=== PATIENT | female | born 1990 | race African-American/Black ===

== ENCOUNTER 2016-12-11 09:37 | Emergency (ER) | payer OTHER ==
[~2016-12-11] VITALS: Ht 165.1 cm; Wt 59.6 kg
[2016-12-11 09:39] VITALS: BP 121/78
[2016-12-11] MEDS ORDERED: ALPR1TAB2 PO (10:07)
== END 2016-12-11 11:31 | disposition home or self-care (01) ==
LOC: ED 11:02
DX: B34.9 Viral infection, unspecified (principal); K02.9 Dental caries, unspecified; Z87.891 Personal history of nicotine dependence
CPT/HCPCS: 71020

== ENCOUNTER 2017-01-05 16:28 | Emergency (ER) | payer OTHER ==
[~2017-01-05] VITALS: Ht 165.1 cm; Wt 57.4 kg
[~2017-01-05 16:28] MED LIST: ALPR1TAB2 PO
[2017-01-05 16:30] VITALS: BP 131/73
== END 2017-01-05 18:05 | disposition home or self-care (01) ==
LOC: ED 17:59
DX: S09.90XA Unspecified injury of head, initial encounter (principal); S49.92XA Unspecified injury of left shoulder and upper arm, initial encounter; Y04.2XXA Assault by strike against or bumped into by another person, initial encounter; Y93.89 Activity, other specified; Y92.89 Other specified places as the place of occurrence of the external cause; Y99.8 Other external cause status
CPT/HCPCS: 70450; 99284

== ENCOUNTER 2017-06-11 17:22 | Emergency (ER) | payer OTHER ==
[~2017-06-11] VITALS: Ht 165.1 cm; Wt 57.9 kg
[2017-06-11 17:29] VITALS: BP 136/78
== END 2017-06-11 18:22 | disposition home or self-care (01) ==
LOC: ED 18:20
DX: K08.89 Other specified disorders of teeth and supporting structures (principal)
CPT/HCPCS: 99283

== ENCOUNTER 2017-07-03 02:59 | Emergency (ER) | payer OTHER, MEDICAID ==
[~2017-07-03] VITALS: Ht 167.6 cm; Wt 62.6 kg
[2017-07-03 03:01] VITALS: BP 120/81
[2017-07-03] MEDS ORDERED: HYDROcodone/APAP 5/325 TABLET ONE (03:50)
[2017-07-03] MEDS ORDERED: HYDROcodone/APAP 5/325 TABLET PO ONE (04:00)
== END 2017-07-03 04:10 | disposition home or self-care (01) ==
LOC: ED 04:03
DX: K02.9 Dental caries, unspecified (principal); K08.89 Other specified disorders of teeth and supporting structures; Z87.891 Personal history of nicotine dependence
CPT/HCPCS: 99283

== ENCOUNTER 2017-07-11 05:20 | Emergency (ER) | payer MEDICAID, OTHER ==
[~2017-07-11] VITALS: Ht 165.1 cm; Wt 64.3 kg
[2017-07-11] MEDS ORDERED: HYDROcodone/APAP 5/325 TABLET PO PRN (06:00)
[2017-07-11] MEDS ORDERED: HYDROcodone/APAP 5/325 TABLET ONE (06:28)
[2017-07-11 09:04] VITALS: BP 128/68
== END 2017-07-11 09:07 | disposition home or self-care (01) ==
LOC: ED 06:24
DX: S09.90XA Unspecified injury of head, initial encounter (principal); S16.1XXA Strain of muscle, fascia and tendon at neck level, initial encounter; S40.012A Contusion of left shoulder, initial encounter; K08.89 Other specified disorders of teeth and supporting structures; V89.2XXA Person injured in unspecified motor-vehicle accident, traffic, initial encounter; Y93.89 Activity, other specified; Y92.89 Other specified places as the place of occurrence of the external cause; Y99.8 Other external cause status
CPT/HCPCS: 70450; 72072; 72125; 99284

== ENCOUNTER 2017-08-08 04:30 | Emergency (ER) | payer MEDICAID ==
[~2017-08-08] VITALS: Ht 167.6 cm; Wt 63.7 kg
[2017-08-08] MEDS ORDERED: HYDROcodone/APAP 5/325 TABLET ONE (05:08)
[2017-08-08] MEDS ORDERED: HYDROcodone/APAP 5/325 TABLET PO ONE (05:30)
[2017-08-08 06:07] VITALS: BP 123/74
== END 2017-08-08 06:09 | disposition home or self-care (01) ==
LOC: ED 05:33
DX: K08.89 Other specified disorders of teeth and supporting structures (principal)
CPT/HCPCS: 99283

== ENCOUNTER 2018-02-06 23:35 | Emergency (ER) | payer MEDICAID ==
[~2018-02-06] VITALS: Ht 167.6 cm; Wt 59.2 kg
[2018-02-06 23:37] VITALS: BP 118/78
[2018-02-07] MEDS ORDERED: OXYcodone/APAP 5/325MG TABLET ONE (00:47)
[2018-02-07] MEDS ORDERED: OXYcodone/APAP 5/325MG TABLET PO ONE (01:00)
== END 2018-02-07 01:02 | disposition home or self-care (01) ==
LOC: ED 02-07 00:35
DX: S72.435A Nondisplaced fracture of medial condyle of left femur, initial encounter for closed fracture (principal); K08.89 Other specified disorders of teeth and supporting structures; X58.XXXA Exposure to other specified factors, initial encounter; Y93.89 Activity, other specified; Y92.89 Other specified places as the place of occurrence of the external cause; Y99.8 Other external cause status
CPT/HCPCS: 99284

== ENCOUNTER 2018-03-25 04:45 | Emergency (ER) | payer MEDICAID ==
[~2018-03-25] VITALS: Ht 167.6 cm; Wt 58.8 kg
[2018-03-25 04:48] VITALS: BP 115/83
== END 2018-03-25 06:43 | disposition home or self-care (01) ==
LOC: ED 05:04
DX: S83.412A Sprain of medial collateral ligament of left knee, initial encounter (principal); M25.462 Effusion, left knee; W19.XXXA Unspecified fall, initial encounter; Y93.89 Activity, other specified; Y92.89 Other specified places as the place of occurrence of the external cause; Y99.8 Other external cause status
CPT/HCPCS: 29505; 99284

== ENCOUNTER 2018-07-29 21:19 | Emergency (ER) | payer MEDICAID ==
[2018-07-29 22:05] LABS: BASOPHILS # (AUTO) 0.08 x10^3/uL (0-0.1); BASOPHILS % (AUTO) 1 % (0-1); EOSINOPHILS # (AUTO) 0.02 x10^3/uL (0-0.4); EOSINOPHILS % (AUTO) 0 % (1-7); LYMPHOCYTES # (AUTO) 2.78 x10^3/uL (1-3.4); LYMPHOCYTES % (AUTO) 30 % (22-44); MD NO; MEAN CORPUSCULAR HEMOGLOBIN 28.6 pg (27.0-34.8); MEAN CORPUSCULAR HGB CONC 33.5 g/dL (32.4-35.8); MEAN CORPUSCULAR VOLUME 85.4 fL (80-100); MEAN PLATELET VOLUME 8.3 fL (7.4-10.4); MONOCYTES # (AUTO) 0.48 x10^3/uL (0.2-0.8); MONOCYTES % (AUTO) 5 % (2-9); NEUTROPHILS # (AUTO) 6.05 x10^3/uL (1.8-6.8); NEUTROPHILS % (AUTO) 64 % (42-75); PLATELET COUNT 260 x10^3/uL (130-400); RED BLOOD COUNT 4.44 x10^6/uL (3.82-5.3); RED CELL DISTRIBUTION WIDTH 13.1 % (9.6-15.2)
[2018-07-29 22:17] LABS: ALANINE AMINOTRANSFERASE 28 U/L (12-78); ALBUMIN 4.1 g/dL (3.4-5.0); ANION GAP 7 mmol/L (5-15); CALCIUM 9.4 mg/dL (8.5-10.1); CHLORIDE 108 mmol/L (98-107)
[2018-07-29 22:20] LABS: ALKALINE PHOSPHATASE 77 U/L (45-117); BILIRUBIN,TOTAL 0.4 mg/dL (0.2-1.0); TOTAL PROTEIN 7.7 g/dL (6.4-8.2)
--- NOTE | 2018-07-29 22:20 | NUR ---
PT IN GOWN IN [facility]. SPOUSE AT BS. PT NON-VERBAL AT THIS TIME, BUT ANSWERS QUESTIONS WITH NOTE PAD. PT SPOUSE TALKING AND ANSWERING QUESTIONS ON PT BEHALF. KATELYN [place], AT BS FOR HISTORY AND ASSESSMENT.
--- NOTE | 2018-07-29 22:45 | NUR ---
PT RECORDS RECEIVED FROM [facility]. PT AND SPOUSE CONFUSED ON TESTS/DIAGNOSTICS PERFORMED THERE. DR. AGOSTO AT TO EXPLAIN ALL TESTS AND FINDINGS. PT VERBALIZES UNDERSTANDING OF RESULTS. PT VSS AND UPDATED IN EMR.
[2018-07-29 22:58] VITALS: BP 131/97
--- NOTE | 2018-07-29 23:21 | NUR ---
PT D/C WITH D/C SUMMARY. PT AND PT SPOUSE GETTING IRRITABLE AND CONTINUES TO QUESTION MEDICAL TESTS FROM ANOTHER FACILITY. PT QUESTIONS ANSWERED BY KATELYN MONREAL. PT RESISTANT TO LEAVE, AND PT SPOUSE SAYING THAT THEY RECEIVED SUBPAR CARE AND MEDICAL EXPLANATIONS FROM OTHER HOSPITAL. PT AND SPOUSE ENCOURAGED TO CONTACT OTHER FACILITY FOR FURTHER QUESTIONS/EXPLANATIONS TO CARE RECEIVED THERE. PT SPOUSE VERBALIZES UNDERSTANDING.
== END 2018-07-29 23:20 | disposition home or self-care (01) ==
LOC: ED 22:56
DX: F44.9 Dissociative and conversion disorder, unspecified (principal); F41.1 Generalized anxiety disorder; Z72.9 Problem related to lifestyle, unspecified
CPT/HCPCS: 36415; 80053; 85025; 99283